=== PATIENT | female | born 1945 | race Caucasian/White ===

== ENCOUNTER → 2018-12-14 | Outpatient (CLI) | payer MEDICARE ==
[~2018-12-14] MED LIST: IODINE/POTASS IOD (LUGOLS) 8 ML BTL TOPICAL ONE
--- NOTE | 2018-12-15 09:15 | NM ---
EXAMINATION TYPE: NM DatScan Brain SPECT DATE OF EXAM: 12/14/2018 COMPARISON: NONE HISTORY: Essential tremor TECHNIQUE: 10 drops of Lugol's solution was administered 1 hour prior to injection as a thyroid bloc cheryl agent. After the administration of 4.56 mCi I-123 Ioflupane DaTscan. Images obtained 3 hours p ost injection. SPECT images of the brain were acquired with axial and coronal reconstructions. FINDINGS: There is asymmetric uptake along the striata. Lack of normal comma shape uptake is noted on the left. , Comma shape activity is present on the right. IMPRESSION: Abnormal Stefany scan, correlate for Parkinson's disease.
== END | disposition home or self-care (01) ==
LOC: RADNMMAIN 10:49
PROVIDERS: ATTEND Psychiatry & Neurology Neurology
DX: R94.02 Abnormal brain scan (principal); G25.0 Essential tremor
CPT/HCPCS: 78607; A9584

== ENCOUNTER 2024-07-25 23:18 | Emergency (ER) | payer MEDICARE ==
--- NOTE | 2024-07-25 23:19 | ED ---
Fall HPI - General Stated Complaint: Fall Time Seen by Provider: 07/25/24 23:19 Source: RN notes reviewed, old records reviewed Mode of arrival: EMS Limitations: no limitations - History of Present Illness Initial Comments: This is a 79-year-old female status post fall fall from standing head injury head laceration shoulder pain right shoulder pain. 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 ROS Other: All systems not noted in ROS Statement are negative. General Exam General appearance: alert, in no apparent distress Head exam: Present: normocephalic, normal inspection. Absent: atraumatic (La ceration) Eye exam: Present: normal appearance, PERRL, EOMI. Absent: scleral icterus, conjunctival injection, periorbital swelling ENT exam: Present: normal exam, mucous membranes moist Neck exam: Present: normal inspection. Absent: tenderness, meningismus, lymphadenopathy Respiratory exam: Present: normal lung sounds bilaterally. Absent: respiratory distress, wheezes, rales, rhonchi, stridor Cardiovascular Exam: Present: regular rate, normal rhythm, normal heart sounds. Absent: systolic murmur, diastolic murmur, rubs, gallop, clicks GI/Abdominal exam: Present: soft, normal bowel sounds. Absent: distended, tenderness, guarding, rebound, rigid Extremities exam: Present: normal inspection, full ROM, normal capillary refill. Absent: tenderness, pedal edema, joint swelling, calf tenderness Back exam: Present: normal inspection Neurological exam: Present: alert, oriented X3, CN II-XII intact Psychiatric exam: Present: normal affect, normal mood Skin exam: Present: warm, dry, intact, normal color. Absent: rash Course Vital Signs 07/25/24 07/26/24 07/26/24 23:18 00:21 00:23 Temperature 97.4 F L Pulse Rate 75 76 Respiratory 16 18 Rate Blood Pressure 171/79 142/70 O2 Sat by Pulse 96 99 Oximetry 07/26/24 07/26/24 01:24 02:10 Temperature Pulse Rate 80 87 Respiratory 18 16 Rate Blood Pressure 144/69 137/85 O2 Sat by Pulse 96 96 Oximetry - Reevaluation(s) Reevaluation #1: 07/26/24 01:46 Records reviewed Reevaluation #2: 07/26/24 01:47 Patient's pain is controlled Reevaluation #3: 07/26/24 01:47 Informed of results questions answered Reevaluation #4: Was pt. sent in by a medical professional or institution ([facility] [place], ATTENDANCE CLERK, urgent care, hospital, or prison...) When possible be specific @ -no Did you speak to anyone other than the patient for history (EMS, parent, family, police, friend...)? What history was obtained from this source @ -no Did you review nursing and triage notes (agree or disagree)? Why? @ -agree Are old charts reviewed (outside hosp., previous admission, EMS record, old EKG, old radiological studies, urgent care reports/EKG's, prison records)? Report findings @ -yes Differential Diagnosis (chest pain, altered mental status, abdominal pain women, abdominal pain men, vaginal bleeding, weakness, fever, dyspnea, syncope, headache, dizziness, GI bleed, back pain, seizure, CVA, palpatations, mental health, musculoskeletal)? @ -prior EKG interpreted by me (3pts min.). @ -yes X-rays interpreted by me (1pt min.). @ -yes negative for acute disease CT interpreted by me (1pt min.). @ -Yes negative for acute disease U/S interpreted by me (1pt. min.). @ -no What testing was considered but not performed or refused? (CT, X-rays, U/S, la bs)? Why? @ -none What meds were considered but not given or refused? Why? @ -none Did you discuss the management of the patient with other professionals (professionals i.e. [facility] [place], ATTENDANCE CLERK, lab, RT, psych nurse, hospice social worker, sand cutting machine operator, teacher, sales officer, case maker)? Give summary @ -no Was smoking cessation discussed for >3mins.? @ -no Was critical care preformed (if so, how long)? @ -no Were there social determinants of health that impacted care today? How? (Homelessness, low income, unemployed, alcoholism, drug addiction, transportation, low edu. Level, literacy, decrease access to med. care, alf, rehab)? @ -none Was there de-escalation of care discussed even if they declined (Discuss DNR or withdrawal of care, Hospice)? DNR status @ -no What co-morbidities impacted this encounter? (DM, HTN, Smoking, COPD, CAD, Cancer, CVA, ARF, Chemo, Hep., AIDS, mental health diagnosis, sleep apnea, morbid obesity)? @ -none Was patient admitted / discharged? Hospital course, mention meds given and route, prescriptions, significant lab abnormalities, going to OR and other pertinent info. @ -79 female to ER with fall fall from standing with head injury scalp laceration repaired here in the ER no traumatic injury noted. Patient can be discharged home Discharge Undiagnosed new problem with uncertain prognosis? @ -no Drug Therapy requiring intensive monitoring for toxicity (Heparin, Nitro, Insulin, Cardizem)? @ -no Were any procedures done? @ -no Diagnosis/symptom? @ -Fall head injury scalp laceration shoulder pain Acute, or Chronic, or Acute on Chronic? @ -Acute Uncomplicated (without systemic symptoms) or Complicated (systemic symptoms)? @ -Complicated Side effects of treatment? @ -no Exacerbation, Progression, or Severe Exacerbation? @ -exacerbation Poses a threat to life or bodily function? How? (Chest pain, USA, MA, pneumonia, PE, COPD, DKA, ARF, appy, cholecystitis, CVA, Diverticulitis, Homicidal, Suicidal, threat to staff... and all critical care pts) @ -yes fall with head injury Procedures - Laceration Laceration #1 Consent Obtained: verbal consent Indication: laceration Site: scalp Size (cm): 3 Description: linear Depth: simple, single layer Size of Sutures: other (Clarisa) Technique: simple, interrupted Complications: pain Medical Decision Making - Medical Decision Making 79 female to the ER of a fall fall from standing head laceration repaired here in the emergency department no significant traumatic injury noted otherwise patient will be discharged home - EKG Data -: EKG Interpreted by Me (EKG is sinus 72 VT 165 QRS 79 QTc 414) - Radiology Data Radiology results: report reviewed (CT brain C-spine chest pelvis and right shoulder x-ray negative for traumatic injury), image reviewed Disposition Clinical Impression: Fall, Right shoulder pain, Head injury, Coagulopathy, Scalp laceration Disposition: HOME SELF-CARE Instructions (If sedation given, give patient instructions): Fall Prevention for Older Adults (ED), [facility] (ED) Is patient prescribed a controlled substance at d/c from ED?: No Referrals: May Kapoor MD [Primary Care Provider] - 1-2 days Time of Disposition: 01:40
[2024-07-26 00:21] VITALS: TEMP 97.4
--- NOTE | 2024-07-26 00:26 | CT ---
EXAM: CT Head Without Intravenous Contrast CLINICAL HISTORY: ITS.REASON CT Reason: fall TECHNIQUE: Axial computed tomography images of the head/brain without intravenous contrast. CTDI is 45.3 mGy and DLP is 1066 mGy-cm. This CT exam was performed using one or more of the following dose reduction techniques: automated exposure control, adjustment of the mA and/or kV according to patient size, and/or use of iterative reconstruction technique. COMPARISON: None. FINDINGS: Image quality is hampered by motion artifact. Brain: There is no acute intracranial hemorrhage, mass-effect or midline shift. No acute extra-axial fluid collections. Age related cerebral atrophy with widening of the extra-axial spaces/ventricular dilatation. Bones/joints: Unremarkable. No acute fracture. Soft tissues: Laterally right temporofrontal and left frontoparietal scalp hematomas. Sinuses: Unremarkable as visualized. No acute sinusitis. Moderately leftward deviated nasal septum. Other findings: Intracranial arterial/cavernous ICAs calcified atherosclerosis.. IMPRESSION: Partly limited examination due to motion artifacts Bilateral moderate size scalp hematomas. No acute intracranial abnormality noted. Chronic involutional changes of the brain. . EXAM: CT Cervical Spine Without Intravenous Contrast CLINICAL HISTORY: ITS.REASON CT Reason: fall TECHNIQUE: Axial computed tomography images of the cervical spine without intravenous contrast. CTDI is 7.3 mGy and DLP is 212.8 mGy-cm. This CT exam was performed using one or more of the following dose reduction techniques: automated exposure control, adjustment of the mA and/or kV according to patient size, and/or use of iterative reconstruction technique. COMPARISON: No relevant prior studies available. FINDINGS: Motion artifact Vertebrae: No acute fracture. No malalignment. Discs/spinal canal/neural foramina: No acute findings. C5-C7 mild/moderate degenerative spondylosis with mild/moderate foraminal stenosis and very mild anterior thecal sac compression. Soft tissues: Unremarkable. Biapical pleural-parenchymal thickening/scarring. IMPRESSION: No acute osseous injury to the cervical spine
[2024-07-26] MEDS: HYDROmorphone 0.5 MG/0.5 ML SYRINGE IVP STA (00:30)
[2024-07-26] MEDS: SODIUM CHLORIDE 0.9% 500 ML 500 ML IV STA (00:30)
[2024-07-26] MEDS: traMADol 50 MG STARTER PACK 3 TAB BTL PO STA (02:08)
[2024-07-26 02:11] VITALS: BP 137/85; PULSE 87; RESP 16
--- NOTE | 2024-07-26 03:35 | XR ---
EXAM: XR Chest, 1 View CLINICAL HISTORY: ITS.REASON XR Reason: fall TECHNIQUE: Frontal view of the chest. COMPARISON: No relevant prior studies available. FINDINGS: Lungs: Unremarkable. No consolidation. Pleural space: Unremarkable. No pneumothorax. Heart: Unremarkable. No cardiomegaly. Mediastinum: Unremarkable. Normal mediastinal contour. Bones/joints: Diffuse osseous demineralization. No acute fracture or subluxation. IMPRESSION: No acute fracture or subluxation.
--- NOTE | 2024-07-26 03:36 | XR ---
EXAM: XR Pelvis, 1 or 2 Views CLINICAL HISTORY: ITS.REASON XR Reason: fall TECHNIQUE: Frontal view of the pelvis. COMPARISON: No relevant prior studies available. FINDINGS: Bones/joints: Diffuse osseous demineralization. No acute fracture or subluxation. Soft tissues: Unremarkable. IMPRESSION: No acute fracture or subluxation.
--- NOTE | 2024-07-26 03:58 | XR ---
EXAM: XR Right Shoulder Complete, 2 or More Views CLINICAL HISTORY: ITS.REASON XR Reason: fall TECHNIQUE: Two or more views of the right shoulder. COMPARISON: None. FINDINGS: Bones/joints: Osteopenia. No acute fracture. No dislocation. Mild/moderate osteoarthrosis. Soft tissues: Laterally soft tissue edema/swelling. IMPRESSION: No acute fracture or dislocation. The need for additional imaging/MRI shoulder for greater soft tissue details can be determined clinically. .
== END 2024-07-26 02:11 | disposition home or self-care (01) ==
LOC: EC 23:18
DX: S01.01XA Laceration without foreign body of scalp, initial encounter (principal); M25.511 Pain in right shoulder; D68.9 Coagulation defect, unspecified; W18.30XA Fall on same level, unspecified, initial encounter
CPT/HCPCS: 72170; 73030; 71045; 72125; 70450; 99285; 12002; 96374; 96361; J1171